=== PATIENT | male | born 1990 | race Caucasian/White ===

== ENCOUNTER 2017-05-03 10:46 | Emergency (ER) | payer SELFPAY ==
[~2017-05-03] VITALS: Ht 185.4 cm; Wt 80.0 kg
[~2017-05-03 10:46] MED LIST: LORT5TAB PO; NAPR500 PO; Z.0.NO CURRENT MEDS
[2017-05-03 10:57] VITALS: BP 152/74; PULSE 115; RESP 18; TEMP 98.7; O2SAT 97
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
[2017-05-03] MEDS ORDERED: KETOROLAC TROMETHAMINE 60 MG/2 ML (IM) VIAL IM ONE (12:15)
[2017-05-03] MEDS ORDERED: IBUP1TAB7 PO (13:08)
== END 2017-05-03 13:19 | disposition home or self-care (01) ==
LOC: NEPD 10:46
DX: T84.116A Breakdown (mechanical) of internal fixation device of bone of right lower leg, initial encounter (principal); S99.911A Unspecified injury of right ankle, initial encounter; S01.81XA Laceration without foreign body of other part of head, initial encounter; Y09 Assault by unspecified means
CPT/HCPCS: 29515; 70450; 73610; 96372; 99284; E0113; J1885

== ENCOUNTER 2017-05-17 00:02 | Emergency (ER) | payer SELFPAY ==
[~2017-05-17] VITALS: Ht 185.4 cm; Wt 87.0 kg
[~2017-05-17 00:02] MED LIST changes: +IBUP1TAB7 PO; -LORT5TAB PO; -NAPR500 PO; -Z.0.NO CURRENT MEDS
[2017-05-17 00:21] VITALS: BP 133/72; PULSE 63; RESP 16; TEMP 98.5; O2SAT 98
[2017-05-17 02:57] VITALS: BP 120/59; PULSE 55; RESP 16; TEMP 97.6; O2SAT 97
[2017-05-17] MEDS ORDERED: HYDR-3288 PO (03:15)
--- NOTE | 2017-05-17 04:14 | PD ---
HPI Chief Complaint: Injury Time Seen by Provider: 04:11 Travel History International Travel<30 days: No Contact w/Intl Traveler<30days: No Traveled to known affect area: No History of Present Illness HPI 26-year-old male presents to the emergency department in the care of his significant other for evaluation of the cast placed to his right ankle a few days ago. Patient states he went to an orthopedic office and a cast was placed. Patient is not aware of the name of his orthopedist. Patient states he has an ankle fracture and he feels like the cast is too tight on his ankle. Patient states he has noticed swelling of the toes. Patient is to better than they did but they are still swollen. Patient states that he has pressure at the level of the ankle. Patient denies any recent injury. Patient is demanding that the cast be removed or something be done to the cast. Patient did not contact his managing orthopedic surgeon regarding his symptoms. Patient states that times even feels like his toes are tingling although they are not numb or tingling at this time. Patient does not complain of severe pain. Patient has not noticed any pallor of the foot. PFSH Past Medical History Narrative Medical Chronic bronchitis, ankle fracture, alcohol use and marijuana use; nursing notes reviewed Diminished Hearing: No Respiratory: Yes (PATIENT STATES THAT HE HAS A HISTORY OF CHRONIC BRONCHITIS) Immunizations Current: No Social History Alcohol Use: Yes (12 PACK A WEEK) Tobacco Use: No Substance Use: Yes (marijuana ) Allergies-Medications (Allergen,Severity, Reaction): Coded Allergies: No Known Allergies (Verified Adverse Reaction, Unknown, 05/03/17) Reported Meds & Prescriptions Reported Meds & Active Scripts Active Ibuprofen 800 Mg Tab 800 Mg PO Q8H PRN Reported [place] (Hydrocodone-Acetaminophen) 7.5-325 mg Tab 1 Tab PO Q4H PRN Review of Systems Except as stated in HPI: all other systems reviewed are Neg Physical Exam Narrative GENERAL: Well-developed well-nourished male no acute distress no respiratory distress SKIN: Warm and dry. MUSCULOSKELETAL: No cyanosis, or edema. Lower leg cast to the right lower extremity; toes capillary refill brisk and less than 2 seconds patient able to move toes and does not complain of severe pain sensation intact motor intact. BACK: Nontender without obvious deformity. No CVA tenderness. Data Data Last Documented VS Vital Signs Date Time Temp Pulse Resp B/P (MAP) Pulse Ox O2 Delivery O2 Flow Rate FiO2 05/17/17 02:57 97.6 55 16 120/59 (79) 97 05/17/17 00:21 Room Air Orders Orders Ed Discharge Order (05/17/17 05:19) MDM Medical Decision Making Medical Screen Exam Complete: Yes Emergency Medical Condition: Yes Medical Record Reviewed: Yes Differential Diagnosis Compartment syndrome, cast discomfort Narrative Course Patient complains of severe pain therefore will mono-valve/cut the cast and if not enough relief of symptoms we will bivalve the cast Patient reports symptoms markedly improved is desirous of no further intervention regarding his cast will follow up with his orthopedist on Thursday Patient is stable for outpatient Diagnosis Primary Impression: Cast discomfort Referrals: Orthopedist 1 day Patient Instructions: General Instructions Additional Instructions: Avoid weightbearing Elevate right lower extremity above the level of the heart May take as needed ibuprofen for discomfort Follow-up with your orthopedic surgeon call office on Thursday Return to the emergency department for any concerns or change Disposition: 01 DISCHARGE HOME Condition: Stable Sadie Mayes MD May 17, 2017 04:14
== END 2017-05-17 06:07 | disposition home or self-care (01) ==
LOC: NED 00:02 → NEPC 06:07
DX: S82.891D Other fracture of right lower leg, subsequent encounter for closed fracture with routine healing (principal); X58.XXXD Exposure to other specified factors, subsequent encounter; F12.90 Cannabis use, unspecified, uncomplicated; Z47.89 Encounter for other orthopedic aftercare
CPT/HCPCS: 99281